=== PATIENT | male | born 1975 | race Hispanic/Latino ===

== ENCOUNTER 2017-06-19 14:29 | Inpatient (IN) | payer OTHER ==
[2017-06-19] VITALS (14 sets, daily range): BP systolic 120–155; BP diastolic 79–101
[~2017-06-19] VITALS: Ht 182.9 cm; Wt 133.8 kg
[~2017-06-19 14:29] MED LIST: CRESTOR PO; CRESTOR10 MG PO; GABAPENTIN300 MG PO; HCTZ PO; HYDROCODONE PO; INVOKANA PO; JANUMET PO; JANUVIA PO; LISINOPRIL PO; LISINOPRIL20 MG PO; METOPROLOL PO; METOPROLOL SUCC25 MG PO; NORCO 10-325 T1 EACH PO; SOMA PO
[2017-06-19] MEDS ORDERED: SODIUM CHLORIDE 0.9% 500ML 500 ML IV STA (14:40)
[2017-06-19] MEDS ORDERED: ASPIRIN 81 MG CHEW TAB PO ONE (14:45)
[2017-06-19 15:06] LABS: BASOPHILS % 0.6 % (0.0-1.0); EOSINOPHILS # (AUTO) 0.2 (0.0-0.4); EOSINOPHILS % 2.3 % (0.0-6.0); HEMATOCRIT 50.8 % (38.2-49.6); HEMOGLOBIN 17.7 g/dL (14.0-18.0); LYMPHOCYTES % 41.9 % (18.0-39.1); MEAN CORPUSCULAR HEMOGLOBIN 27.7 pg (28-32); MEAN CORPUSCULAR HGB CONC 34.8 g/dL (31-35); MEAN CORPUSCULAR VOLUME 79.6 fL (81-99); MONOCYTES # (AUTO) 0.5 (0.2-0.8); MONOCYTES % 7.1 % (4.4-11.3); NEUTROPHILS # (AUTO) 3.4 (2.1-6.9); NEUTROPHILS % 47.7 % (38.7-80.0); PLATELET COUNT 267 x10e3/uL (140-360); RED BLOOD COUNT 6.38 x10e6/uL (4.3-5.7); RED CELL DISTRIBUTION WIDTH 12.4 % (11.7-14.4)
[2017-06-19 15:11] LABS: INR 0.86; PROTHROMBIN TIME 12.1 seconds (11.9-14.5)
[2017-06-19 15:12] LABS: PARTIAL THROMBOPLASTIN TIME 27.7 seconds (23.8-35.5)
[2017-06-19 15:21] LABS: ALANINE AMINOTRANSFERASE 54 IU/L (0-55); ALBUMIN 3.9 g/dL (3.5-5.0); ALBUMIN/GLOBULIN RATIO 1.1 (0.8-2.0); ALKALINE PHOSPHATASE 91 IU/L (40-150); ANION GAP 17.8 mmol/L (8-16); BLOOD UREA NITROGEN 11 mg/dL (7-26); BUN/CREATININE RATIO 13 (6-25); CALCIUM 9.6 mg/dL (8.4-10.2); CARBON DIOXIDE 24 mmol/L (22-29); CHLORIDE 99 mmol/L (98-107); CREATINE KINASE 310 IU/L (30-200); CREATININE, SERUM 0.82 mg/dL (0.72-1.25); EST GLOMERULAR FILTRATION RATE > 60 ML/MIN (60-); GLUCOSE 239 mg/dL (74-118); LIPASE 33 U/L (8-78); POTASSIUM 3.8 mmol/L (3.5-5.1); SODIUM 137 mmol/L (136-145)
[2017-06-19 15:28] LABS: TROPONIN I 0.009 ng/mL (0-0.300)
[2017-06-19] MEDS ORDERED: SODIUM CHLORIDE FLUSH 10 ML SYR INJ PRN (16:00)
[2017-06-19] MEDS ORDERED: NITROGLYCERIN 0.4 MG SUBL SL PRN (16:00)
--- NOTE | 2017-06-19 16:11 | Diagnostic Imaging Report ---
PROCEDURE: A single AP view of the chest. COMPARISON: Patients [facility], DX, CHEST 2 VIEWS, 10/15/2013, 15:49. INDICATIONS: CODE STEMI, CHEST PAIN FINDINGS: Lines/tubes: None. Lungs: The lungs are well inflated and clear. There is no evidence of pneumonia or pulmonary edema. Pleura: There is no pleural effusion or pneumothorax. 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 Heart and mediastinum: The heart and the mediastinum are unremarkable. Bones: No acute bony abnormality. Partially visualized anterior fusion hardware in the lower cervical spine. IMPRESSION: 1. No acute cardiopulmonary abnormalities. Jag Cruz M.D. Dictated by: Jag Cruz M.D. on 06/19/2017 at 16:20 Electronically approved by: Jag Cruz M.D. on 06/19/2017 at 16:20
[2017-06-19] MEDS ORDERED: SODIUM CHLORIDE 0.9% 500ML 500 ML IV ONE (16:15)
[2017-06-19] MEDS ORDERED: IOPAMIDOL 370 MG/ML 200 ML INFUS..BTL INJ ONE ×3 (16:16→16:55)
[2017-06-19] MEDS ORDERED: LIDOCAINE HCL 2% LOCAL 20 ML VIAL ONE (16:16)
[2017-06-19] MEDS ORDERED: HEPARIN SOD/SOD CHLORIDE 2,000 ML ONE (16:16)
[2017-06-19] MEDS ORDERED: FENTANYL CITRATE/PF 100MCG/2 ML INJ ONE (16:27)
[2017-06-19] MEDS ORDERED: MIDAZOLAM HCL 2 MG/2 ML VIAL ONE (16:27)
[2017-06-19] MEDS ORDERED: HEPARIN SOD (PORCINE) 1000 UNIT/ML 30ML ONE (16:27)
[2017-06-19] MEDS ORDERED: NITROGLYCERIN/D5W 200 MCG/ML 250 ML ONE (16:28)
[2017-06-19] MEDS ORDERED: SODIUM CHLORIDE 0.9% 50ML 50 ML ONE (16:53)
[2017-06-19] MEDS ORDERED: BIVALIRUDIN 250 MG/VIAL IV ONE (16:53)
[2017-06-19] MEDS ORDERED: EPTIFIBATIDE 10 ML ONE (17:04)
[2017-06-19] MEDS ORDERED: EPTIFIBATIDE 100 ML ONE (17:04)
--- NOTE | 2017-06-19 17:13 | Consultation ---
DATE OF CONSULTATION: June 19, 2017 CARDIAC CONSULTATION REASON FOR CONSULTATION: Unstable coronary syndrome, possible ST-elevation myocardial infarction. HISTORY: I received a call from the emergency room for a 41-year-old gentleman who has been diabetic since age 17, hypertensive and hypercholesterolemic. The patient does have a very strong family history of coronary artery disease. In fact, he lost his brother a week ago for diabetes mellitus complications. He was on dialysis and possible myocardial infarction. Patient woke up this morning. He is not feeling well. He went to work. He had prolonged retrosternal chest pain radiating to his back, lasting for an hour with dizziness and near syncope. He subsequently had several episodes of repeated chest pain but not as severe. He went to see Dr. Infante. He advised him to come to the emergency room. He had EKG in Dr. Infante's office which showed QS with ST elevations in the anterior leads and left ventricular hypertrophy. In the emergency room, the patient was pain-free, but then he had a few episodes of this chest pain. Because of unstable nature of his symptoms and his suspicious EKG of possible recent myocardial infarction and QS in V1 to V2 versus severe LVH and the high risk factors, we elected to proceed with urgent cardiac catheterization and with activated cardiac laborer stores team. I visited with the patient who describes his chest pain. He is still having it back and forth. It is severe retrosternal, radiating to the back, associated with diaphoresis. Patient mainly works in the office. He does not do much of physical activity. He was able to carry out his activities before that day. Patient also known to have hypercholesterolemia and hypertension. He takes his medications as prescribed. He is on metformin, glipizide and Invokana in addition to lisinopril and Crestor. REVIEW OF SYSTEMS CARDIAC: As per above. PULMONARY: No cough. No hemoptysis. GI: No hematemesis. No melena. : Increased frequency of urination. NEUROMUSCULAR: Cervical spine pain and chronic pain on medication. GENERAL: No fever. No chills. SOCIAL HISTORY: He is . Unfortunately, he is a smoker. He is a social alcohol drinker. He works in an office. HOME MEDICATIONS: Metformin, glipizide, Invokana, gabapentin, lisinopril 20 mg a day, Crestor 20 mg a day. ALLERGIES: MINOCYCLINE. PAST MEDICAL HISTORY 1. Diabetes mellitus since age 17. 2. Hypercholesteremia. 3. Hypertension. 4. Cervical spine surgery. 5. Chronic pain syndrome. 6. Obesity. 7. Smoker. FAMILY HISTORY: Strongly positive for diabetes mellitus and coronary artery disease, losing his brother at age 35 to complications of diabetes and end-stage renal disease. He was on hemodialysis. PHYSICAL EXAMINATION GENERAL: Obese gentleman in pain. VITALS: Blood pressure is 160/90. Heart rate of 80. Respiratory rate of 18. Afebrile. HEENT: Pupils are equal and reactive. NECK: No elevation of jugular venous pulsation. No bruit. CHEST: Clear to auscultation and percussion. HEART: PMI at 5th left intercostal space, normal 1st and 2nd heart sounds. ABDOMEN: Soft with good bowel sounds. No organomegaly. No abdominal bruits. EXTREMITIES: No cyanosis. No clubbing. No edema. No signs of deep venous thrombosis. NEUROLOGIC: No motor or sensory deficits. LABORATORY DATA: As per chart. EKG showing left ventricular hypertrophy. QS with ST elevation in anterior leads. Lateral T wave inversion. IMPRESSION AND PLAN 1. Diabetes mellitus since age 17. 2. Hypertension. 3. Hypercholesterolemia. 4. Smoker. 5. Strong family history of coronary artery disease. 6. Typical unstable coronary syndrome pending myocardial infarction or possible anterior wall myocardial infarction with QS in anterior leads. PLAN: Discussed the case. In fact, I saw patient the patient in the emergency room because of the patient's typical symptoms. He will be taken to the laborer stores. microbiology laboratory manager is activated. The patient will be having cardiac catheterization urgently and emergently with possible intervention. The procedure, risks, benefits and alternatives are discussed and explained while the patient is draped. His questions are answered. Depending on the finding of the laborer stores, further steps to be taken. Job#: [id number]
[2017-06-19] MEDS: SODIUM CHLORIDE 0.9% 1000ML 1,000 ML IV SCH (17:52)
[2017-06-19] MEDS ORDERED: ACETAMINOPHEN 325 MG TAB PO PRN (18:00)
[2017-06-19] MEDS ORDERED: DEXTROSE 50% SYRINGE 50 ML IV PRN (18:00)
[2017-06-19] MEDS ORDERED: ZOLPIDEM TARTRATE 5 MG TAB PO PRN (18:00)
[2017-06-19] MEDS ORDERED: ONDANSETRON HCL INJ 2 MG/ML VIAL IV PRN (18:00)
[2017-06-19] MEDS: ATORVASTATIN 40 MG TAB PO SCH (21:05)
[2017-06-19] MEDS: GABAPENTIN 300 MG CAP PO SCH (21:42)
[2017-06-19] MEDS: INSULIN REGULAR, HUMAN 100 UNIT/1 ML 3ML VIAL SQ SCH (21:42)
[2017-06-19] MEDS: HYDROCODONE/APAP 5MG-325MG TAB PO PRN (21:42)
[2017-06-19] MEDS ORDERED: GABAPENTIN 300 MG CAP ONE (21:46)
--- NOTE | 2017-06-19 23:02 | Operative Report ---
DATE OF PROCEDURE: June 19, 2017 PROCEDURES PERFORMED 1. Left heart cardiac catheterization with coronary angiography. 2. Left ventriculography. 3. Percutaneous coronary intervention with drug-eluting stent placement to the mid to distal left anterior descending. 4. Angio-Seal closure of the right common femoral arteriotomy. INDICATIONS FOR PROCEDURE: A 41-year-old gentleman with a history of hypertension, type 2 with complications, who came to his primary care physician's office today with chest pain syndrome that has been escalating and concerning for unstable coronary syndrome/and some unstable angina. The patient had EKG changes concerning for ACS. In light of typical symptoms, was taken emergently to the cardiac catheterization laboratory. After risks, benefits, pros, and cons of the procedure were explained, the patient agreed to proceed. The patient was brought to the cardiac catheterization laboratory where the right groin was prepped and draped in the usual sterile fashion. One percent lidocaine solution was used to numb the right groin. Access to the right femoral artery was obtained. The 4-Irish femoral sheath was placed. Selective coronary angiography: The [place] left and right coronary arteries were followed with JL5 and 3DRC diagnostic catheters respectively. An angled pigtail catheter was placed in the ventricle for ventriculography and hemodynamic assessment of left ventricular filling pressures. After noting the critical mid to distal LAD lesion, which was the culprit at 95+ percent stenosis and a very long lesion, we decided to proceed with intervention. The 4-Irish femoral sheath was upsized to a 6-Irish femoral sheath. We took an XB 4 guiding catheter and selected the left main coronary ostia. IV Angiomax bolus was given for systemic anticoagulation, as well as Integrilin boluses. Utilizing a 180 cm Prowater flex guidewire, this successfully crossed the lesion. We then took an Emerge 2.5 x 15 balloon and deployed that up to 10 atmospheres of pressure to predilate the lesion. We then took a Synergy 2.5 x 38 mm drug-eluting stent and deployed that up to 17 atmospheres of pressure landing just distal to an ectatic segment in the mid LAD. Final angiography revealed zero percent residual stenosis, ULISES-III flow and no complications. At the conclusion of the case, femoral angiogram was performed revealing femoral artery stick and a 6-Irish Angio-Seal closure device was successfully deployed achieving hemostasis. COMPLICATIONS: None. ESTIMATED BLOOD LOSS: Minimal. FINDINGS 1. Left main is angiographically normal and gives rise to an LAD and circumflex branch. 2. The LAD has diffuse areas of ectasia throughout with 40% proximal mid-stenosis just proximal to a large diagonal branch takeoff. The mid-LAD has ectatic area followed by a long mid to distal 95% stenosis. The LAD wraps around the apex. 3. The left circumflex gives rise to a very small anterolateral marginal branch followed by a moderate to large marginal branch, which has 50% to 60% stenosis just after the circumflex takeoff. The circumflex terminates into a small posterolateral marginal branch. 4. The RCA is dominant and diffusely ectatic with 30% stenosis along the proximal aspect of this vessel. This vessel gives rise to a right PDA and a right PRV branch. There is a 50% stenosis just after the takeoff of the right PDA. 5. Left ventricular ejection fraction is 65% with end-diastolic pressure of 24 mmHg. There is no significant LV to aortic pullback gradient. There is no ectasia of the ascending aorta. It filled after the injection of contrast. INTERVENTION SUMMARY: Underwent successful treatment of a long 95% mid to distal LAD stenosis with implantation of a Synergy 2.5 x 38 mm drug-eluting stent resulting on zero percent residual stenosis, ULISES-III flow, and no complications. PLAN/RECOMMENDATIONS 1. Aspirin and Plavix therapy. 2. 6 Hour bed rest after PCI. 3. Risk factor modification/medical therapy for CAD. Job#: [id number] RI KRISTAL
[2017-06-19 23:43] LABS: CREATINE KINASE MB 2.5 ng/mL (0.00-5.00); TROPONIN I 0.01 ng/mL (0-0.300)
[2017-06-20] VITALS (20 sets, daily range): BP systolic 103–146; BP diastolic 73–88
[2017-06-20 05:54] LABS: BASOPHILS % 0.5 % (0.0-1.0); EOSINOPHILS # (AUTO) 0.2 (0.0-0.4); EOSINOPHILS % 2.1 % (0.0-6.0); HEMATOCRIT 45.4 % (38.2-49.6); HEMOGLOBIN 15.5 g/dL (14.0-18.0); LYMPHOCYTES % 35.1 % (18.0-39.1); MEAN CORPUSCULAR HGB CONC 34.1 g/dL (31-35); MEAN CORPUSCULAR VOLUME 81.9 fL (81-99); MONOCYTES # (AUTO) 0.7 (0.2-0.8); NEUTROPHILS # (AUTO) 4.5 (2.1-6.9); NEUTROPHILS % 53.9 % (38.7-80.0); PLATELET COUNT 230 x10e3/uL (140-360); RED BLOOD COUNT 5.54 x10e6/uL (4.3-5.7); RED CELL DISTRIBUTION WIDTH 12.5 % (11.7-14.4)
[2017-06-20] MEDS ORDERED: METFORMIN HCL500 MG PO (06:07)
[2017-06-20] MEDS ORDERED: GLIPIZIDE ER5 MG PO (06:08)
[2017-06-20] MEDS ORDERED: INFLUENZA VIRUS VAC SPLIT INJ 0.5 ML SYR IM ONE ×2 (06:30→11:46)
[2017-06-20] MEDS ORDERED: PNEUMOCOCCAL VACCINE POLYVALENT 23 MCG/0.5 ML VIAL IM ONE (06:30)
[2017-06-20 06:34] LABS: ALANINE AMINOTRANSFERASE 44 IU/L (0-55); ALBUMIN 3.1 g/dL (3.5-5.0); ALKALINE PHOSPHATASE 72 IU/L (40-150); ANION GAP 13.4 mmol/L (8-16); BLOOD UREA NITROGEN 12 mg/dL (7-26); BUN/CREATININE RATIO 14 (6-25); CARBON DIOXIDE 27 mmol/L (22-29); CHLORIDE 102 mmol/L (98-107); CHOL/HDL RATIO 9.3 (3.9-4.7); CHOLESTEROL 299 MD/DL (0-199); CREATINE KINASE 197 IU/L (30-200); CREATININE, SERUM 0.85 mg/dL (0.72-1.25); EST GLOMERULAR FILTRATION RATE > 60 ML/MIN (60-); GLUCOSE 255 mg/dL (74-118); HDL CHOLESTEROL 32 MG/DL (40-60); POTASSIUM 4.4 mmol/L (3.5-5.1); SODIUM 138 mmol/L (136-145); TRIGLYCERIDES 777 MG/DL (0-149)
[2017-06-20 06:44] LABS: BILIRUBIN,URINE NEGATIVE (NEGATIVE); CLARITY,URINE HAZY (CLEAR); COLOR,URINE YELLOW (YELLOW); KETONES,URINE NEGATIVE (NEGATIVE); LEUKOCYTE ESTERASE ,URINE 2+ (NEGATIVE); NITRITE,URINE NEGATIVE (NEGATIVE); URINE UROBILINOGEN 0.2 mg/dL (0.2 - 1)
[2017-06-20 06:48] LABS: AMPHETAMINES SCREEN,URINE NEGATIVE (NEGATIVE); BENZODIAZEPINES SCREEN,URINE NEGATIVE (NEGATIVE); PHENCYCLIDINE SCREEN,URINE NEGATIVE (NEGATIVE); PROTEIN,URINE DIPSTICK 2+ (NEGATIVE)
[2017-06-20 06:59] LABS: THYROID STIMULATING HORMONE 1.846 uIU/mL (0.350-4.940)
[2017-06-20 07:01] LABS: BACTERIA,URINE MODERATE /HPF; EPITHELIAL CELLS,URINE FEW /LPF; HYALINE CASTS 0-1 (0-1); MUCUS,URINE MODERATE (RARE); WBC,URINE (MAN) >50 /HPF (0-5)
[2017-06-20] MEDS: INSULIN REGULAR, HUMAN 100 UNIT/1 ML 3ML VIAL SQ SCH ×4 (07:30→20:20)
[2017-06-20] MEDS: SODIUM CHLORIDE 0.9% 1000ML 1,000 ML IV SCH (08:21)
[2017-06-20] MEDS: ASPIRIN 325 MG TAB EC PO SCH (08:22)
[2017-06-20] MEDS: METOPROLOL TARTRATE 25 MG TAB PO SCH ×2 (08:23→17:02)
[2017-06-20] MEDS: GABAPENTIN 300 MG CAP PO SCH ×2 (08:24→20:20)
[2017-06-20] MEDS: CLOPIDOGREL BISULFATE 75 MG TAB PO SCH (08:24)
[2017-06-20] MEDS: LISINOPRIL 10 MG TAB PO SCH (08:24)
[2017-06-20] MEDS ORDERED: ASPIRIN 325 MG TAB ONE (08:27)
[2017-06-20] MEDS: HYDROCODONE/APAP 5MG-325MG TAB PO PRN ×2 (08:36→14:57)
[2017-06-20] MEDS ORDERED: PNEUMOCOCCAL VACCINE POLYVALENT 23 MCG/0.5 ML VIAL ONE (11:46)
[2017-06-20] MEDS ORDERED: LOPERAMIDE HCL 2 MG CAP PO PRN (12:00)
[2017-06-20] MEDS: ATORVASTATIN 40 MG TAB PO SCH (20:19)
[2017-06-21] VITALS: BP 120/68
[2017-06-21 04:00] VITALS: BP 120/68
[2017-06-21] MEDS ORDERED: ASPIRIN 325 MG TAB ONE (08:10)
[2017-06-21] MEDS: METOPROLOL TARTRATE 25 MG TAB PO SCH (08:14)
[2017-06-21] MEDS: CLOPIDOGREL BISULFATE 75 MG TAB PO SCH (08:14)
[2017-06-21] MEDS: GABAPENTIN 300 MG CAP PO SCH (08:14)
[2017-06-21] MEDS: INSULIN REGULAR, HUMAN 100 UNIT/1 ML 3ML VIAL SQ SCH (08:14)
[2017-06-21] MEDS: ASPIRIN 325 MG TAB EC PO SCH (08:14)
[2017-06-21] MEDS: LISINOPRIL 10 MG TAB PO SCH (08:15)
[2017-06-21] MEDS: HYDROCODONE/APAP 5MG-325MG TAB PO PRN (08:15)
[2017-06-21 08:37] VITALS: BP 119/69
[2017-06-21 09:54] VITALS: BP 119/69
[2017-06-21] MEDS ORDERED: PLAVIX75 MG PO (11:52)
[2017-06-21] MEDS ORDERED: CRESTOR10 MG PO (11:52)
[2017-06-21] MEDS ORDERED: METOPROLOL TART25 MG PO (11:52)
== END 2017-06-21 12:02 | disposition home or self-care (01) | DRG 247 ==
LOC: ER 14:29 → CATH LAB 17:16 → ICU 06-20 02:45 → MED/SURG 06-20 14:10
PROC: 027034Z Dilation of Coronary Artery, One Artery with Drug-eluting Intraluminal Device, Percutaneous Approach (ICD-10-PCS; principal; 2017-06-19)
PROC: 3E033PZ Introduction of Platelet Inhibitor into Peripheral Vein, Percutaneous Approach (ICD-10-PCS; 2017-06-19)
PROC: 4A023N7 Measurement of Cardiac Sampling and Pressure, Left Heart, Percutaneous Approach (ICD-10-PCS; 2017-06-19)
PROC: B2111ZZ Fluoroscopy of Multiple Coronary Arteries using Low Osmolar Contrast (ICD-10-PCS; 2017-06-19)
PROC: B2151ZZ Fluoroscopy of Left Heart using Low Osmolar Contrast (ICD-10-PCS; 2017-06-19)
DX: I25.110 Atherosclerotic heart disease of native coronary artery with unstable angina pectoris (principal); Z68.41 Body mass index [BMI] 40.0-44.9, adult; I10 Essential (primary) hypertension; E10.9 Type 1 diabetes mellitus without complications; E78.5 Hyperlipidemia, unspecified; Z82.49 Family history of ischemic heart disease and other diseases of the circulatory system; G89.29 Other chronic pain; M47.812 Spondylosis without myelopathy or radiculopathy, cervical region; E66.9 Obesity, unspecified; F17.200 Nicotine dependence, unspecified, uncomplicated; Z23 Encounter for immunization; Z79.82 Long term (current) use of aspirin; Z79.02 Long term (current) use of antithrombotics/antiplatelets
CPT/HCPCS: 36140; 36415; 71045; 77002; 80053; 80061; 80307; 81001; 82550; 82553; 82948; 83690; 83880; 84443; 84484; 85025; 85610; 85730; 87086; 90732; 93005; 93452; 93458; 99284; C1766; C9600; J0583; J1327; J1644; J2001; J2250; J7030; J7040; Q9967

== ENCOUNTER 2017-06-27 14:23 | Observation (INO) | payer OTHER ==
[~2017-06-27] VITALS: Ht 182.9 cm; Wt 127.9 kg
[~2017-06-27 14:23] MED LIST changes: +GLIPIZIDE ER5 MG PO; +METFORMIN HCL500 MG PO; +METOPROLOL TART25 MG PO; +PLAVIX75 MG PO
--- OUTSIDE RECORDS SUMMARY | 2017-06-27 14:27 | XMS REPORT | Continuity of Care Document ---
Author Author [facility] Organization [facility] Address [address] [place] [address] Phone Unavailable Care Team Providers Care Animal Behaviourist Name Role Phone WALT LOPEZ DO PCP Insurance Providers Guarantor Valente Hurst Address [address] [id number] Email [email or web address] Payer [employer] Policy Number [id number] Subscriber's Name Valente Hurst Relationship 18 Self / Same As Patient Group Number [id number] Group Name [id number] Effective Date 14 Advance Directives Directive Response Recorded Date/Time Does the patient have an advance directive? No 06/19/17 7:00pm If yes, is advance directive on file with [facility]? No 06/19/17 7:00pm If not on file with [facility] will patient provide a copy? No 06/19/17 7:00pm Do you have a Directive to Physician? No 06/19/17 3:12pm Do you have a Medical Power of Fuel Cell Battery Technician? No 06/19/17 3:12pm Do you have an out of hospital Do Not Resuscitate Order? No 06/19/17 3:12pm Do you have any special needs we should be aware of? No 06/19/17 3:12pm Do you have a support person here with you today? Yes 06/19/17 3:12pm Did patient receive Notice of Privacy Practices? Yes 06/19/17 3:12pm Did patient receive patient rights and responsibilities? Yes 06/19/17 3:12pm Problems Medical Problem Onset Date Status Chest pain Unknown Medications Current Home Medications Medication Dose Units Route Directions Days Qty Instructions Start Date Clopidogrel Bisulfate (Plavix) 75 Mg Tablet 75 Mg Oral Daily 30 Tab Gabapentin 300 Mg Capsule 300 Mg Oral Twice A Day 60 Cap Glipizide (Glipizide Er) 5 Mg Tab.er.24 1 Tab Oral Daily Hydrocodone Bit/Acetaminophen ([place] 10-325 Tablet) 1 Each Tablet 1 Tab Oral Twice A Day as needed for Pain Invokana 300 Mg Oral Twice A Day Lisinopril (Prinavil / Zestril) 20 Mg Tablet 20 Mg Oral Daily Metformin Hcl 500 Mg Tablet 500 Mg Oral Twice A Day 60 Tab Metoprolol Tartrate 25 Mg Tablet 25 Mg Oral Twice A Day Rosuvastatin Calcium (Crestor) 10 Mg Tab 40 Mg Oral Daily THERAPEUTICALLY SUBSTITUTED WITH SIMVASTATIN 40MG Past Home Medications Medication Directions Ordered Status Metoprolol Succinate 25 Mg Tab.er.24h, 25 Mg Oral Daily Discontinued Rosuvastatin Calcium (Crestor) 10 Mg Tab, 20 Mg Oral Daily Discontinued Social History Social History Problem Response Recorded Date/Time Onset Date Status Hx Psychiatric Problems No 06/19/2017 7:00pm Not Applicable Not Applicable Hx Eating Disorder No 06/19/2017 7:00pm Not Applicable Not Applicable Hx Substance Use Disorder No 06/19/2017 7:00pm Not Applicable Not Applicable Hx Depression No 06/19/2017 7:00pm Not Applicable Not Applicable Hx Alcohol Use No 06/19/2017 7:00pm Not Applicable Not Applicable Hx Substance Use Treatment No 06/19/2017 7:00pm Not Applicable Not Applicable Hx Physical Abuse No 06/19/2017 7:00pm Not Applicable Not Applicable Smoking Status Start Date Stop Date Current every day smoker Hospital Discharge Instructions No hospital discharge instruction information available. Plan of Care Discharge Date 06/21/17 12:02pm Disposition HOME, SELF-CARE Instructions/Education Provided Anticoagulation Therapy Hypercholesteremia Diabetes and Diet Cardiac Disease Risk Factors Heart Healthy Diet Prescriptions See Medication Section Referrals GARRY HICKS MD (Cardiology) Order Date: 1-2 Weeks Entered Date: 06/21/2017 11:30am Address: [address] [place] [id number] Additional Instructions/Education F/U WITH PCP IN 2 WEEKS CONTINUE DIABETIC REGIMEN AT HOME CALL AND SCHEDULE A F/U APPT WITH DR. HICKS NEXT WEEK OKAY TO SHOWER NO HEAVY LIFTING UNTIL F/U WITH DR. HICKS NO STRENUOUS ACTIVITY Functional Status Query Response Date Recorded Assistive Devices None June 19, 2017 7:00pm Ambulation Ability Independent June 19, 2017 7:00pm Toileting Ability Independent June 19, 2017 7:00pm Allergies, Adverse Reactions, Alerts Allergen Type Severity Reaction Status Last Updated Minocycline Allergy Severe ANAPHYLAXIS Active 06/19/17 Immunizations No immunization information available. Vital Signs Acute Vital Signs Vital Response Date/Time Temperature (Fahrenheit) 97.3 degrees F (97.6 - 99.5) 06/21/2017 9:54am Pulse Pulse Rate (adult) 74 bpm (60 - 90) 06/21/2017 9:54am Respiratory Rate 20 bpm (12 - 24) 06/21/2017 9:54am Blood Pressure 119/69 mm Hg 06/21/2017 9:54am Height 6 ft 0 in 06/19/2017 2:37pm Weight 295 lb 06/19/2017 7:00pm Body Mass Index 40.0 kg/m^2 06/19/2017 7:00pm Results Laboratory Results Test Name Result Units Flags Reference Collection Date/Time Result Date/ Time Comments White Blood Count 8.40 x10e3/uL 4.8-10.8 06/20/2017 5:45am 06/20/2017 5 :59am Red Blood Count 5.54 x10e6/uL 4.3-5.7 06/20/2017 5:45am 06/20/2017 5: 59am Hemoglobin 15.5 g/dL 14.0-18.0 06/20/2017 5:45am 06/20/2017 5:59am Hematocrit 45.4 % 38.2-49.6 06/20/2017 5:45am 06/20/2017 5:59am Mean Corpuscular Volume 81.9 fL 81-99 06/20/2017 5:45am 06/20/2017 5: 59am Mean Corpuscular Hemoglobin 28.0 pg 28-32 06/20/2017 5:45am 06/20/2017 5:59am Mean Corpuscular Hemoglobin Concent 34.1 g/dL 31-35 06/20/2017 5:45am 06/20/2017 5:59am Red Cell Distribution Width 12.5 % 11.7-14.4 06/20/2017 5:45am 2017 5:59am Platelet Count 230 x10e3/uL 140-360 06/20/2017 5:45am 06/20/2017 5: 59am Neutrophils (%) (Auto) 53.9 % 38.7-80.0 06/20/2017 5:45am 06/20/2017 5: 59am Lymphocytes (%) (Auto) 35.1 % 18.0-39.1 06/20/2017 5:45am 06/20/2017 5: 59am Monocytes (%) (Auto) 8.0 % 4.4-11.3 06/20/2017 5:45am 06/20/2017 5: 59am Eosinophils (%) (Auto) 2.1 % 0.0-6.0 06/20/2017 5:45am 06/20/2017 5: 59am Basophils (%) (Auto) 0.5 % 0.0-1.0 06/20/2017 5:45am 06/20/2017 5:59am IM GRANULOCYTES % 0.4 % 0.0-1.0 06/20/2017 5:45am 06/20/2017 5:59am Neutrophils # (Auto) 4.5 2.1-6.9 06/20/2017 5:45am 06/20/2017 5:59am Lymphocytes # (Auto) 3.0 1.0-3.2 06/20/2017 5:45am 06/20/2017 5:59am Monocytes # (Auto) 0.7 0.2-0.8 06/20/2017 5:45am 06/20/2017 5:59am Eosinophils # (Auto) 0.2 0.0-0.4 06/20/2017 5:45am 06/20/2017 5:59am Basophils # (Auto) 0.0 0.0-0.1 06/20/2017 5:45am 06/20/2017 5:59am Absolute Immature Granulocyte (auto 0.03 x10e3/uL 0-0.1 06/20/2017 5: 45am 06/20/2017 5:59am Prothrombin Time 12.1 seconds 11.9-14.5 06/19/2017 2:49pm 06/19/2017 3: 12pm Prothromb Time International Ratio 0.86 06/19/2017 2:49pm 2017 3:12pm Oral Anticoagulant Therapy INR Values: 1. Low Intensity Therapy 1.5 - 2.0 2. Moderate Intensity Therapy 2.0 - 3.0 3. High Intensity Therapy(1) 2.5 - 3.5 4. High Intensity Therapy(2) 3.0 - 4.0 5. Panic Value INR > 5.0 Activated Partial Thromboplast Time 27.7 seconds 23.8-35.5 06/19/2017 2: 49pm 06/19/2017 3:12pm Urine Color YELLOW YELLOW 06/20/2017 6:25am 06/20/2017 6:48am Urine Clarity HAZY CLEAR 06/20/2017 6:25am 06/20/2017 6:48am Urine Specific [place] 1.020 1.010-1.025 06/20/2017 6:25am 2017 6:48am Urine pH 6 5 - 7 06/20/2017 6:25am 06/20/2017 6:48am Urine Leukocyte Esterase 2+ H NEGATIVE 06/20/2017 6:25am 06/20/2017 6: 48am Urine Nitrite NEGATIVE NEGATIVE 06/20/2017 6:25am 06/20/2017 6:48am Urine Protein 2+ H NEGATIVE 06/20/2017 6:25am 06/20/2017 6:48am Urine Glucose (UA) 1+ H NEGATIVE 06/20/2017 6:25am 06/20/2017 6:48am Urine Ketones NEGATIVE NEGATIVE 06/20/2017 6:25am 06/20/2017 6:48am Urine Opiates Screen POSITIVE H NEGATIVE 06/20/2017 6:25am 06/20/2017 6:48am This test provides only a screen. Positive results should be repeated by a confirmatory test. Urine Barbiturates Screen NEGATIVE NEGATIVE 06/20/2017 6:25am 2017 6:48am Urine Phencyclidine Screen NEGATIVE NEGATIVE 06/20/2017 6:25am 2017 6:48am Urine Amphetamines Screen NEGATIVE NEGATIVE 06/20/2017 6:25am 2017 6:48am Urine Methamphetamines Screen NEGATIVE NEGATIVE 06/20/2017 6:25am 6:48am Urine Benzodiazepines Screen NEGATIVE NEGATIVE 06/20/2017 6:25am 6:48am Urine Cocaine Screen NEGATIVE NEGATIVE 06/20/2017 6:25am 06/20/2017 6 :48am Urine Cannabinoids Screen NEGATIVE NEGATIVE 06/20/2017 6:25am 2017 6:48am THESE RESULTS ARE FOR MEDICAL TREATMENT ONLY *THIS REPORT CONTAINS UNCONFIRMED SCREENING RESULTS* POSITIVE RESULTS WILL BE CONFIRMED BY REFERENCE LAB UPON REQUEST CUT-OFF DRUG CLASS CONCENTRATION ng/mL Amphetamines 1000 Methamphetamines 1000 Cocaine 300 Opiate 300 Phencyclidine 25 Cannabinoid 50 Barbiturates 300 Benzodiazepine 300 Methadone 300 Urine Methadone Screen NEGATIVE NEGATIVE 06/20/2017 6:25am 2017 6:48am THESE RESULTS ARE FOR MEDICAL TREATMENT ONLY *THIS REPORT CONTAINS UNCONFIRMED SCREENING RESULTS* POSITIVE RESULTS WILL BE CONFIRMED BY REFERENCE LAB UPON REQUEST CUT-OFF DRUG CLASS CONCENTRATION ng/mL Amphetamines 1000 Methamphetamines 1000 Cocaine Metabolite 300 Opiate 300 Phencyclidine 25 Cannabinoid 50 Barbiturates 300 Benzodiazepine 300 Methadone 300 Urine Urobilinogen 0.2 mg/dL 0.2 - 1 06/20/2017 6:25am 06/20/2017 6: 48am Urine Bilirubin NEGATIVE NEGATIVE 06/20/2017 6:25am 06/20/2017 6: 48am Urine Blood 1+ H NEGATIVE 06/20/2017 6:25am 06/20/2017 6:48am Urine WBC >50 /HPF H 0-5 06/20/2017 6:25am 06/20/2017 7:01am Urine RBC 11-20 /HPF H 0-5 06/20/2017 6:25am 06/20/2017 7:01am Urine Bacteria MODERATE /HPF H NONE 06/20/2017 6:25am 06/20/2017 7:01am Urine Epithelial Cells FEW /LPF NONE 06/20/2017 6:25am 06/20/2017 7: 01am Urine Hyaline Casts 0-1 0-1 06/20/2017 6:25am 06/20/2017 7:01am Urine Mucus MODERATE H RARE 06/20/2017 6:25am 06/20/2017 7:01am Sodium Level 138 mmol/L 136-145 06/20/2017 5:45am 06/20/2017 6:35am Potassium Level 4.4 mmol/L 3.5-5.1 06/20/2017 5:45am 06/20/2017 6:35am Chloride Level 102 mmol/L 98-107 06/20/2017 5:45am 06/20/2017 6:35am Carbon Dioxide Level 27 mmol/L 22-06/20/2017 5:45am 06/20/2017 6: 35am Anion Gap 13.4 mmol/L 8-16 06/20/2017 5:45am 06/20/2017 6:35am Blood Urea Nitrogen 12 mg/dL 7-06/20/2017 5:45am 06/20/2017 6:35am Creatinine 0.85 mg/dL 0.72-1.25 06/20/2017 5:45am 06/20/2017 6:35am BUN/Creatinine Ratio 14 606/20/2017 5:45am 06/20/2017 6:35am Estimat Glomerular Filtration Rate > 60 ML/MIN 6006/20/2017 5:45am 6:35am Ranges were taken from the National Kidney Disease Education Program and the National Kid[employer] Foundation literature. Reference ranges: 60 or greater: Normal 16-59 (for 3 consecutive months): Chronic kidney disease 15 or less: Kidney failure Glucose Level 255 mg/dL H 74-118 06/20/2017 5:45am 06/20/2017 6:35am Calcium Level 9.0 mg/dL 8.4-10.2 06/20/2017 5:45am 06/20/2017 6:35am Bedside Glucose 225 mg/dL H 70-120 06/21/2017 7:06am 06/21/2017 7:51am Meter ID: [id number] Total Bilirubin 0.7 mg/dL 0.2-1.2 06/20/2017 5:45am 06/20/2017 6:35am Aspartate Amino Transf (AST/SGOT) 25 IU/L 5-34 06/20/2017 5:45am 2017 6:35am Alanine Aminotransferase (ALT/SGPT) 44 IU/L 0-55 06/20/2017 5:45am 6:35am Total Protein 6.3 g/dL L 6.5-8.1 06/20/2017 5:45am 06/20/2017 6:35am Albumin 3.1 g/dL # L 3.5-5.0 06/20/2017 5:45am 06/20/2017 6:35am Globulin 3.2 g/dL 2.3-3.5 06/20/2017 5:45am 06/20/2017 6:35am Albumin/Globulin Ratio 1.0 0.8-2.0 06/20/2017 5:45am 06/20/2017 6: 35am Alkaline Phosphatase 72 IU/L 40-150 06/20/2017 5:45am 06/20/2017 6: 35am Triglycerides Level 777 MG/DL H 0-149 06/20/2017 5:45am 06/20/2017 6: 35am Cholesterol Level 299 MD/DL H 0-199 06/20/2017 5:45am 06/20/2017 6:35am Less than 200 mg/dL Low Risk 201 - 239 mg/dL Borderline Risk 240 mg/dl and greater High Risk HDL Cholesterol 32 MG/DL L 40-60 06/20/2017 5:45am 06/20/2017 6:35am Cholesterol/HDL Ratio 9.3 H 3.9-4.7 06/20/2017 5:45am 06/20/2017 6: 35am B-Type Natriuretic Peptide < 10.0 pg/mL 0-100 06/19/2017 2:49pm 2017 3:37pm Creatine Kinase 197 IU/L 30-200 06/20/2017 5:45am 06/20/2017 6:35am Creatine Kinase MB 2.30 ng/mL 0.00-5.00 06/20/2017 5:45am 06/20/2017 7: 01am Troponin I 0.010 ng/mL 0-0.300 06/20/2017 5:45am 06/20/2017 7:01am Lipase 33 U/L 8-78 06/19/2017 2:49pm 06/19/2017 3:21pm Thyroid Stimulating Hormone (TSH) 1.846 uIU/mL 0.350-4.940 06/20/2017 5: 45am 06/20/2017 7:01am Procedures Procedure Status Date Provider(s) CT of abdomen and pelvis without contrast Active 12/19/16 JONAH GRAJEDA MD Encounters Encounter Location Arrival/Admit Date Discharge/Depart Date Attending Provider Discharged Inpatient [facility] 06/20/17 2:45am 06/21/17 12:02pm ANDERS ELIZALDE MD Departed Emergency Room [facility] 12/19/16 10:09am 12/19 12:29pm JONAH GRAJEDA MD
--- OUTSIDE RECORDS SUMMARY | 2017-06-27 14:27 | XMS REPORT ---
Author Author [facility] Address Unknown Phone Unavailable Care Team Providers Care Hand Rigger Name Role Phone VICKY PADILLA Unavailable Unavailable Problems This patient has no known problems. Allergies, Adverse Reactions, Alerts This patient has no known allergies or adverse reactions. Medications This patient has no known medications. Results Test Description Test Time Test Comments Text Results Atomic Results Result Comments CHEST SINGLE (PORTABLE) [place] [address] Patient Name: YULY LEDBETTER MR #: [id number] : 1975 Age/Sex: 41/M Req #: [id number] Adm Physician: Ordered by: XIMENA WINSLOW INSPECTOR [employer] Report # : [id number] Location: ER Room/Bed: Procedure: [id number] DX/CHEST SINGLE (PORTABLE) Exam Date: 06/19/17 Exam Time: 1555 REPORT STATUS: Signed PROCEDURE: A single AP view of the chest. COMPARISON: [facility], , CHEST 2 VIEWS, 10/15, 15:49. INDICATIONS: CODE STEMI, CHEST PAIN FINDINGS : Lines/tubes: None. Lungs: The lungs are well inflated and clear. There is no evidence of pneumonia or pulmonary edema. Pleura: There is no pleural effusion or pneumothorax. 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 Heart and mediastinum: The heart and the mediastinum are unremarkable. Bones: No acute bony abnormality. Partially visualized anterior fusion hardware in the lower cervical spine. IMPRESSION: 1. No acute cardiopulmonary abnormalities. Kale Cruz M.D. Dictated by: Kale Cruz M.D. on 06/19/2017 at 16:20 Electronically approved by: Kale Cruz M.D. on 2017 at 16:20 Dictated By: KALE CRUZ MD 1620 Transcribed By: BEKAH on 1620 COPY TO: XIMENA WINSLOW NP
[2017-06-27] MEDS ORDERED: ASPIRIN 81 MG CHEW TAB PO STA (15:25)
[2017-06-27] MEDS ORDERED: NITROGLYCERIN 0.4 MG SUBL SL PRN (15:30)
[2017-06-27] MEDS ORDERED: ASPIRIN 81 MG CHEW TAB PO ONE ×2 (15:30→17:30)
[2017-06-27 15:32] LABS: BASOPHILS % 0.5 % (0.0-1.0); EOSINOPHILS # (AUTO) 0.1 (0.0-0.4); EOSINOPHILS % 1.7 % (0.0-6.0); HEMATOCRIT 47.8 % (38.2-49.6); HEMOGLOBIN 16.5 g/dL (14.0-18.0); LYMPHOCYTES # (AUTO) 2.7 (1.0-3.2); LYMPHOCYTES % 31.6 % (18.0-39.1); MEAN CORPUSCULAR HEMOGLOBIN 27.6 pg (28-32); MEAN CORPUSCULAR HGB CONC 34.5 g/dL (31-35); MEAN CORPUSCULAR VOLUME 79.9 fL (81-99); MONOCYTES # (AUTO) 0.7 (0.2-0.8); NEUTROPHILS # (AUTO) 4.9 (2.1-6.9); PLATELET COUNT 282 x10e3/uL (140-360); RED BLOOD COUNT 5.98 x10e6/uL (4.3-5.7); RED CELL DISTRIBUTION WIDTH 11.9 % (11.7-14.4)
[2017-06-27 15:36] LABS: BILIRUBIN,URINE NEGATIVE (NEGATIVE); COLOR,URINE YELLOW (YELLOW); KETONES,URINE NEGATIVE (NEGATIVE); LEUKOCYTE ESTERASE ,URINE NEGATIVE (NEGATIVE); NITRITE,URINE NEGATIVE (NEGATIVE); URINE UROBILINOGEN 0.2 mg/dL (0.2 - 1)
[2017-06-27 15:39] LABS: INR 0.87; PROTHROMBIN TIME 12.3 seconds (11.9-14.5)
[2017-06-27 15:40] LABS: CLARITY,URINE CLEAR (CLEAR); PARTIAL THROMBOPLASTIN TIME 29.5 seconds (23.8-35.5); PROTEIN,URINE DIPSTICK 2+ (NEGATIVE)
[2017-06-27 15:46] LABS: MUCUS,URINE MODERATE (RARE); RBC,URINE 0-5 /HPF (0-5); WBC,URINE (MAN) 0-5 /HPF (0-5)
[2017-06-27 15:49] LABS: ALANINE AMINOTRANSFERASE 67 IU/L (0-55); ALBUMIN 4.2 g/dL (3.5-5.0); ALBUMIN/GLOBULIN RATIO 1.2 (0.8-2.0); ALKALINE PHOSPHATASE 83 IU/L (40-150); ANION GAP 16.1 mmol/L (8-16); BLOOD UREA NITROGEN 15 mg/dL (7-26); BUN/CREATININE RATIO 15 (6-25); CALCIUM 9.6 mg/dL (8.4-10.2); CARBON DIOXIDE 24 mmol/L (22-29); CHLORIDE 102 mmol/L (98-107); CREATINE KINASE 569 IU/L (30-200); CREATININE, SERUM 0.97 mg/dL (0.72-1.25); EST GLOMERULAR FILTRATION RATE > 60 ML/MIN (60-); GLUCOSE 131 mg/dL (74-118); POTASSIUM 4.1 mmol/L (3.5-5.1); SODIUM 138 mmol/L (136-145)
--- NOTE | 2017-06-27 15:55 | Diagnostic Imaging Report ---
PROCEDURE: A single AP view of the chest. COMPARISON: 06/19/17 INDICATIONS: CHEST PAIN FINDINGS: Lines/tubes: None. Lungs: Limited by body habitus and low lung volumes. Central vascular congestion. There is no evidence of pneumonia. Pleura: There is no pleural effusion or pneumothorax. Heart and mediastinum: The heart and the mediastinum are unremarkable. Bones: No acute bony abnormality. Cervical fusion hardware is in place. IMPRESSION: Limited as above. Central vascular congestion. No focal consolidation. Dictated by: Thanh To M.D. on 06/27/2017 at 16:05 Electronically approved by: Thanh To M.D. on 06/27/2017 at 16:05
[2017-06-27] MEDS ORDERED: ASPIR 8181 MG PO (17:18)
[2017-06-27] MEDS ORDERED: EMPAGLIFLOZIN PO (17:18)
[2017-06-27] MEDS ORDERED: GABAPENTIN400 MG PO (17:18)
[2017-06-27] MEDS ORDERED: LISINOPRIL10 MG PO ×2 (17:18→22:33)
[2017-06-27] MEDS ORDERED: MORPHINE SULFATE 2 MG/ML SYR IV PRN (17:30)
[2017-06-27] MEDS ORDERED: SODIUM CHLORIDE FLUSH 10 ML SYR INJ PRN (17:30)
[2017-06-27] MEDS: FAMOTIDINE 20 MG TAB PO SCH (18:22)
[2017-06-27] MEDS: NITROGLYCERIN 2% OINT 1 GM PKT TOP SCH ×2 (18:22→23:51)
[2017-06-27] MEDS: METOPROLOL TARTRATE 25 MG TAB PO SCH (18:22)
[2017-06-27] MEDS ORDERED: PRASUGREL 10 MG TAB PO ONE (18:30)
--- NOTE | 2017-06-27 19:45 | Consultation ---
DATE OF CONSULTATION: June 27, 2017 CARDIAC CONSULTATION REASON FOR CONSULTATION: Evaluate cardiac status, chest pain. HISTORY: This is a 41-year-old gentleman who is known to be diabetic since age 17, hypertensive and hypercholesteremic with very strong family history of coronary artery disease. In fact, patient lost his brother who is 5 years younger than him to acute myocardial infarction who was diabetic. He was on dialysis. Patient was at this institution on the May with unstable coronary syndrome, had a cardiac catheterization with some subsequent stenting of large LAD, mid LAD lesion. He does have ectatic diffuse coronary artery disease. He was dismissed home on medication. His blood sugar was totally out of control. He was on metformin and glipizide. He was seen by his physician and is also added. He is maintained on Plavix, Crestor, beta ulis and lisinopril. Patient came to this institution because of severe dizzy spells, feeling his head swimming, lower abdominal pain and pressure in his urogenital area. He had also maybe chest pain. He was very frightened because of his recent experience so he came directly to the emergency room. He denied having any nausea or vomiting. Any hematuria or melena. His blood sugar was at 111. After coming to the emergency room, he seems to be doing better. He is currently pain free. Cardiac consultation is obtained. I visited with the patient who is in bed in no distress. He is feeling better now. He is reassured he is not having myocardial infarction. His EKG showing left bundle branch block and left ventricular hypertrophy with strain pattern. Since discharged patient denied having any angina except for that episode. REVIEW OF SYSTEMS: CARDIAC: As per above. PULMONARY: As per above. GI: As per above. : As per above. NEUROMUSCULAR: Cervical spine pain and chronic pain. Patient takes several pain medications because of that. GENERAL: No fever. No chills. SOCIAL HISTORY: He is . He is a smoker. He is a social alcohol drinker. He worked in the office. HOME MEDICATIONS: Includes Crestor 40 mg a day. Aspirin 81 mg a day. Plavix 75 mg a day. Lisinopril 10 mg a day. Metoprolol tartrate 25 mg twice a day. Metformin 1000 mg twice a day. Glipizide 5 mg twice a day. 25 mg a day. Gabapentin 400 mg a day in addition to other p.r.n. medications. ALLERGIES: MINOCYCLINE. PAST MEDICAL HISTORY: 1. Coronary artery disease, status post PCI in May 2017. 2. Diabetes mellitus. 3. Hypercholesterolemia. 4. Hypertension. 5. Cervical spine surgery. 6. Chronic pain syndrome. 7. Obesity. 8. Smoker. FAMILY HISTORY: Strongly positive for diabetes mellitus and coronary artery disease. PHYSICAL EXAMINATION GENERAL: An overweight gentleman in no acute distress. VITALS: Blood pressure 130/80. Heart rate of 80. Respiratory rate of 18. HEENT: Pupils are equal and reactive. NECK: No elevation of jugular venous pulsation. No bruit. CHEST: Clear to auscultation and percussion. HEART: PMI 5th left intercostal space. Normal 1st and 2nd heart sounds. ABDOMEN: Soft with good bowel sounds. No organomegaly. No abdominal bruits. EXTREMITIES: No cyanosis. No clubbing. No edema. No signs of deep venous thrombosis. NEUROLOGIC: No gross motor or sensory deficits. LABORATORY DATA: As per chart. IMPRESSION AND PLAN: 1. Admission with possible hypoglycemic episodes. 2. Coronary artery disease status post recent PCI and diffuse coronary artery disease. 3. Diabetes mellitus with severe end-organ damage. 4. Hypertension. 5. Hypercholesterolemia. Cardiac-cole my recommendation observation on telemetry. Serial cardiac enzymes. Watching the blood sugars. Will give patient Effient instead of Plavix for the fear of Plavix resistance if he is having any cardiac symptoms. Will check his stool for blood. Will do serial cardiac enzymes. Will observe him on telemetry. Further steps will be taken depending on his course over the next 24 hours. Patient admitted to observation. Job#: [id number]
[2017-06-27 20:35] VITALS: BP 112/63
[2017-06-27 20:45] VITALS: BP 112/63
[2017-06-27] MEDS ORDERED: SIMVASTATIN 20 MG TAB PO SCH (21:00)
[2017-06-27] MEDS ORDERED: ALPRAZOLAM 1 MG TAB PO ONE (21:00)
[2017-06-27 23:53] LABS: CREATINE KINASE MB 2.7 ng/mL (0.00-5.00)
[2017-06-27] MEDS: HYDROCODONE/APAP 10MG-325MG TAB PO PRN (23:54)
[2017-06-28] VITALS: BP 118/64
[2017-06-28 05:00] VITALS: BP 116/63
[2017-06-28] MEDS: FAMOTIDINE 20 MG TAB PO SCH (05:39)
[2017-06-28] MEDS: METOPROLOL TARTRATE 25 MG TAB PO SCH (05:39)
[2017-06-28] MEDS: NITROGLYCERIN 2% OINT 1 GM PKT TOP SCH (05:41)
[2017-06-28 06:01] LABS: BASOPHILS # (AUTO) 0.1 (0.0-0.1); BASOPHILS % 0.8 % (0.0-1.0); EOSINOPHILS # (AUTO) 0.2 (0.0-0.4); EOSINOPHILS % 2.4 % (0.0-6.0); HEMATOCRIT 43.8 % (38.2-49.6); HEMOGLOBIN 15.2 g/dL (14.0-18.0); LYMPHOCYTES # (AUTO) 3.3 (1.0-3.2); LYMPHOCYTES % 42.1 % (18.0-39.1); MEAN CORPUSCULAR HEMOGLOBIN 27.8 pg (28-32); MEAN CORPUSCULAR HGB CONC 34.7 g/dL (31-35); MEAN CORPUSCULAR VOLUME 80.1 fL (81-99); MONOCYTES # (AUTO) 0.7 (0.2-0.8); MONOCYTES % 9.4 % (4.4-11.3); NEUTROPHILS # (AUTO) 3.5 (2.1-6.9); PLATELET COUNT 287 x10e3/uL (140-360); RED BLOOD COUNT 5.47 x10e6/uL (4.3-5.7); RED CELL DISTRIBUTION WIDTH 12.1 % (11.7-14.4)
[2017-06-28 06:24] LABS: ALANINE AMINOTRANSFERASE 57 IU/L (0-55); ALBUMIN 3.8 g/dL (3.5-5.0); ALBUMIN/GLOBULIN RATIO 1.2 (0.8-2.0); ALKALINE PHOSPHATASE 72 IU/L (40-150); ANION GAP 14.2 mmol/L (8-16); BLOOD UREA NITROGEN 19 mg/dL (7-26); BUN/CREATININE RATIO 23 (6-25); CALCIUM 9.2 mg/dL (8.4-10.2); CARBON DIOXIDE 24 mmol/L (22-29); CHLORIDE 105 mmol/L (98-107); CHOL/HDL RATIO 5.4 (3.9-4.7); CHOLESTEROL 163 MD/DL (0-199); CREATINE KINASE 500 IU/L (30-200); CREATININE, SERUM 0.83 mg/dL (0.72-1.25); EST GLOMERULAR FILTRATION RATE > 60 ML/MIN (60-); GLUCOSE 108 mg/dL (74-118); HDL CHOLESTEROL 30 MG/DL (40-60); LDL CHOLESTEROL 74 MG/DL (60-130); POTASSIUM 4.2 mmol/L (3.5-5.1); SODIUM 139 mmol/L (136-145); TRIGLYCERIDES 296 MG/DL (0-149)
[2017-06-28 06:50] LABS: THYROID STIMULATING HORMONE 2.154 uIU/mL (0.350-4.940)
[2017-06-28 07:21] VITALS: BP 119/70
[2017-06-28] MEDS: HYDROCODONE/APAP 10MG-325MG TAB PO PRN (08:00)
[2017-06-28] MEDS ORDERED: ASPIRIN 81 MG ENTERIC COATED PO SCH (09:00)
[2017-06-28] MEDS ORDERED: CLOPIDOGREL BISULFATE 75 MG TAB PO SCH (09:00)
[2017-06-28] MEDS ORDERED: PRASUGREL 10 MG TAB PO NR (10:15)
[2017-06-28 11:10] VITALS: BP 127/78
[2017-06-28 11:21] LABS: LYMPHOCYTES % (MANUAL) 40 % (19-48); MONOCYTES % (MANUAL) 7 % (3.4-9.0); NEUTROPHILS % (MANUAL) 43 % (40-74); PLATELET ESTIMATE ADEQUATE
[2017-06-28 11:22] LABS: ANISOCYTOSIS SLIGHT; PLATELET MORPHOLOGY COMMENT NORMAL; RBC MORPHOLOGY COMMENT NORMAL
== END 2017-06-28 12:58 | disposition home or self-care (01) ==
LOC: ER 14:23 → ERHOLD 17:28 → IMCU 20:07
DX: R07.9 Chest pain, unspecified (principal); R07.89 Other chest pain; I25.10 Atherosclerotic heart disease of native coronary artery without angina pectoris; E11.9 Type 2 diabetes mellitus without complications; Z95.5 Presence of coronary angioplasty implant and graft; E11.649 Type 2 diabetes mellitus with hypoglycemia without coma; E66.9 Obesity, unspecified; Z68.38 Body mass index [BMI] 38.0-38.9, adult
CPT/HCPCS: 36415 ×2; 71045; 80053 ×2; 80061; 81001; 82270; 82550 ×2; 82553 ×2; 82948 ×2; 83880; 84443; 84484 ×2; 85025 ×2; 85610; 85730; 87086; 93005; 94660; 99284; G0378 ×2; J2270

== ENCOUNTER 2018-04-15 03:22 | Observation (INO) | payer OTHER ==
[~2018-04-15] VITALS: Ht 182.9 cm; Wt 132.0 kg
[~2018-04-15 03:22] MED LIST changes: +ASPIR 8181 MG PO; +EMPAGLIFLOZIN PO; +GABAPENTIN400 MG PO; +LISINOPRIL10 MG PO
[2018-04-15] MEDS ORDERED: ASPIRIN 81 MG CHEW TAB PO ONE (04:00)
[2018-04-15 04:20] LABS: BASOPHILS # (AUTO) 0.1 (0.0-0.1); BASOPHILS % 0.5 % (0.0-1.0); EOSINOPHILS # (AUTO) 0.2 (0.0-0.4); EOSINOPHILS % 2.4 % (0.0-6.0); HEMATOCRIT 48.2 % (38.2-49.6); HEMOGLOBIN 16.3 g/dL (14.0-18.0); LYMPHOCYTES # (AUTO) 3.4 (1.0-3.2); LYMPHOCYTES % 34.3 % (18.0-39.1); MEAN CORPUSCULAR HEMOGLOBIN 27.6 pg (28-32); MEAN CORPUSCULAR HGB CONC 33.8 g/dL (31-35); MEAN CORPUSCULAR VOLUME 81.7 fL (81-99); MONOCYTES # (AUTO) 0.7 (0.2-0.8); MONOCYTES % 6.7 % (4.4-11.3); NEUTROPHILS # (AUTO) 5.5 (2.1-6.9); NEUTROPHILS % 55.7 % (38.7-80.0); PLATELET COUNT 283 x10e3/uL (140-360); RED CELL DISTRIBUTION WIDTH 12.6 % (11.7-14.4)
[2018-04-15 04:23] LABS: CLARITY,URINE HAZY (CLEAR); COLOR,URINE YELLOW (YELLOW)
[2018-04-15 04:24] LABS: BILIRUBIN,URINE NEGATIVE (NEGATIVE); KETONES,URINE NEGATIVE (NEGATIVE); LEUKOCYTE ESTERASE ,URINE NEGATIVE (NEGATIVE); NITRITE,URINE NEGATIVE (NEGATIVE); PROTEIN,URINE DIPSTICK 2+ (NEGATIVE); URINE UROBILINOGEN 0.2 mg/dL (0.2 - 1)
[2018-04-15 04:27] LABS: INR 0.82; PROTHROMBIN TIME 12.1 seconds (11.9-14.5)
[2018-04-15 04:28] LABS: PARTIAL THROMBOPLASTIN TIME 30.2 seconds (23.8-35.5)
[2018-04-15 04:35] LABS: BACTERIA,URINE FEW /HPF; EPITHELIAL CELLS,URINE FEW /LPF
[2018-04-15 04:37] LABS: ALANINE AMINOTRANSFERASE 52 IU/L (0-55); ALBUMIN 3.8 g/dL (3.5-5.0); ALBUMIN/GLOBULIN RATIO 1.2 (0.8-2.0); ALKALINE PHOSPHATASE 83 IU/L (40-150); ANION GAP 16.7 mmol/L (8-16); BLOOD UREA NITROGEN 13 mg/dL (7-26); BUN/CREATININE RATIO 16 (6-25); CALCIUM 9.6 mg/dL (8.4-10.2); CARBON DIOXIDE 22 mmol/L (22-29); CHLORIDE 103 mmol/L (98-107); CREATINE KINASE 243 IU/L (30-200); CREATININE, SERUM 0.79 mg/dL (0.72-1.25); EST GLOMERULAR FILTRATION RATE > 60 ML/MIN (60-); GLUCOSE 169 mg/dL (74-118); MAGNESIUM 2.1 MG/DL (1.3-2.1); POTASSIUM 3.7 mmol/L (3.5-5.1); SODIUM 138 mmol/L (136-145)
--- NOTE | 2018-04-15 04:49 | Diagnostic Imaging Report ---
EXAMINATION: CHEST 2 VIEWS INDICATION: Back pain, shortness of breath ^CP/BACK PAIN ^[id number] ^0420 COMPARISON: 06/19/2017 FINDINGS: PA and lateral views TUBES and LINES: None. LUNGS: Lungs are well inflated. Lungs are clear. There is no evidence of pneumonia or pulmonary edema. PLEURA: No pleural effusion or pneumothorax. HEART AND MEDIASTINUM: The cardiomediastinal silhouette is unremarkable. BONES AND SOFT TISSUES: No acute osseous lesion. Cervical fusion hardware. Soft tissues are unremarkable. UPPER ABDOMEN: No free air under the diaphragm. IMPRESSION: No acute thoracic abnormality. Signed by: DR. Vignesh Davis MD on 04/15/2018 4:46 AM
[2018-04-15] MEDS ORDERED: NITROGLYCERIN 0.4 MG SUBL SL PRN (05:15)
[2018-04-15] MEDS ORDERED: CEFTRIAXONE SOD 1 GM VIAL IV SCH (05:15)
[2018-04-15] MEDS ORDERED: MORPHINE SULFATE 2 MG/ML SYR IV PRN (05:15)
[2018-04-15] MEDS ORDERED: NITROGLYCERIN 2% OINT 1 GM PKT TOP ONE (05:15)
[2018-04-15] MEDS ORDERED: ONDANSETRON HCL INJ 2 MG/ML VIAL IV PRN (05:15)
[2018-04-15] MEDS ORDERED: DEXTROSE 50% SYRINGE 50 ML IV PRN (05:15)
[2018-04-15] MEDS ORDERED: INSULIN LISPRO 100 UNIT/1 ML 3ML VIAL SQ SCH (07:30)
[2018-04-15] MEDS ORDERED: ASPIRIN 81 MG ENTERIC COATED PO SCH (09:00)
[2018-04-15] MEDS ORDERED: CLOPIDOGREL BISULFATE 75 MG TAB PO SCH (09:00)
[2018-04-15] MEDS ORDERED: FAMOTIDINE 20 MG/2 ML VIAL IV SCH (09:00)
== END 2018-04-15 09:58 | disposition left against medical advice (07) ==
LOC: ER 03:22 → ERHOLD 05:19
DX: R07.89 Other chest pain (principal); R06.02 Shortness of breath; I10 Essential (primary) hypertension; E11.9 Type 2 diabetes mellitus without complications; I25.10 Atherosclerotic heart disease of native coronary artery without angina pectoris; E78.5 Hyperlipidemia, unspecified; G47.33 Obstructive sleep apnea (adult) (pediatric); Z95.5 Presence of coronary angioplasty implant and graft; F17.210 Nicotine dependence, cigarettes, uncomplicated; Z83.3 Family history of diabetes mellitus; Z82.49 Family history of ischemic heart disease and other diseases of the circulatory system; M54.6 Pain in thoracic spine; Z79.84 Long term (current) use of oral hypoglycemic drugs
CPT/HCPCS: 36415; 71046; 80053; 81001; 82550; 82553; 82948; 83735; 83880; 84484; 85025; 85379; 85610; 85730; 87086; 93005; 99284; G0378; J0696

== ENCOUNTER 2020-02-20 00:32 | Emergency (ER) | payer OTHER ==
[~2020-02-20] VITALS: Ht 182.9 cm; Wt 132.4 kg
[~2020-02-20 00:32] MED LIST changes: +BELBUCA600 MCG PO; +CHLORZOXAZONE PO; +GLIPIZIDE ER10 MG PO; +HYDROCODON-ACE1 EAC9 PO; +JARDIANCE25 MG PO; +LISINOPRIL40 MG PO; +LOPRESSOR25 MG PO; +METFORMIN HCL1000 MG PO; +NAPROXEN500 M1 PO; +PRASUGREL HCL10 MG PO; +RANITIDINE HCL150 MG PO; +ROSUVASTATIN CA40 MG PO; +TRICOR48 MG PO
[2020-02-20] MEDS ORDERED: ASPIRIN 81 MG CHEW TAB PO ONE (00:45)
--- NOTE | 2020-02-20 00:58 | Emergency Department Note ---
History of Present Illnes History of Present Illness Chief Complaint: Chest Pain History of Present Illness This is a 44 year old male PRESENTS TO THE ER VIA EMS FROM HOME C/O MIDSTERNAL CP RADIATING TO CENTER OF BACK AND SOB ONSET THIS EVENING AROUND 2300; PT STATES PAIN IS NOW ONLY IN HIS BACK; PT WAS GIVEN 324MG ASA AND X1 NITRO SPRAY BY EMS CLAIMS ADMINISTRATOR; NAD NOTED AT THIS TIME; . Historian: Patient Arrival Mode: [facility] EMS Treatment CLAIMS ADMINISTRATOR: IV, EKG, Aspirin Additional Treatment CLAIMS ADMINISTRATOR: 18G IV LT AC; 324MG ASA; X1 NITRO SPRAY Onset (how long ago): hour(s) (2) Location: SUBSTERNAL CHEST Quality: PAIN Radiation: Reports back Severity: moderate Onset quality: sudden Duration (how long): hour(s) (2) Timing of current episode: constant Progression: partially resolved Chronicity: new Context: Denies recent illness, Denies recent surgery, Denies trauma/injury Relieving factors: other (NTG BY EMS) Exacerbating factors: none Associated symptoms: Reports shortness of breath Treatments prior to arrival: aspirin, other (NTG BY EMS) Past Medical/Family History Physician Review I have reviewed the patient's past medical and family history. Any updates have been documented here. Past Medical History Recent Fever: No Clinical Suspicion of Infectio: No New/Unexplained Change in Ment: No Past Medical History: Hypertension, Diabetes, [place], CAD, Hyperlipedemia, Chronic Back Pain Other Medical History: SLEEP APNEA Past Surgical History: PCI, Hernia Repair Other Surgery: HERNIA REPAIR C5-C7 FUSION CARDIAC STENT Social History Smoking Cessation: Current every day smoker Alcohol Use: Occasional Any Illegal Drug Use: No Family History Family history of heart diseas: Yes Other Last Tetanus: UTD Review of Systems Review of Systems Constitutional: Reports no symptoms EENTM: Reports no symptoms Cardiovascular: Reports as per HPI Respiratory: Reports as per HPI Gastrointestinal: Reports no symptoms Genitourinary: Reports no symptoms Musculoskeletal: Reports no symptoms Integumentary: Reports no symptoms Neurological: Reports no symptoms Psychological: Reports no symptoms Endocrine: Reports no symptoms Hematological/Lymphatic: Reports no symptoms Physical Exam Related Data Allergies: Coded Allergies: minocycline (Verified Allergy, Severe, ANAPHYLAXIS, 04/15/18) Triage Vital Signs Vital Signs Date Time Temp Pulse Resp B/P (MAP) Pulse Ox O2 Delivery O2 Flow Rate FiO2 10/2/20 00:47 98.2 65 20 131/92 97 Room Air Vital signs reviewed: Yes Physical Exam CONSTITUTIONAL Constitutional: Present well-developed, Present well-nourished; Absent distressed HENT HENT: Present normocephalic, Present atraumatic, Present oropharynx clear/moist, Present nose normal HENT L/R: Present left ext ear normal, Present right ext ear normal EYES Eyes: Reports PERRL, Reports conjunctivae normal NECK Neck: Present ROM normal PULMONARY Pulmonary: Present effort normal, Present breath sounds normal CARDIOVASCULAR Cardiovascular: Present regular rhythm, Present heart sounds normal, Present capillary refill normal, Present normal rate GASTROINTESTINAL Abdominal: Present soft, Present nontender, Present bowel sounds normal GENITOURINARY Genitourinary: Present exam deferred SKIN Skin: Present warm, Present dry MUSCULOSKELETAL Musculoskeletal: Present ROM normal NEUROLOGICAL Neurological: Present alert, Present oriented x 3, Present no gross motor or sensory deficits PSYCHOLOGICAL Psychological: Present mood/affect normal, Present judgement normal Results Laboratory Laboratory Laboratory Tests Test 02/20/20 00:45 White Blood Count 7.96 x10e3/uL (4.8-10.8) Red Blood Count 5.61 x10e6/uL (4.3-5.7) Hemoglobin 15.8 g/dL (14.0-18.0) Hematocrit 45.7 % (38.2-49.6) Mean Corpuscular Volume 81.5 fL (81-99) Mean Corpuscular Hemoglobin 28.2 pg (28-32) Mean Corpuscular Hemoglobin Concent 34.6 g/dL (31-35) Red Cell Distribution Width 12.2 % (11.7-14.4) Platelet Count 253 x10e3/uL (140-360) Neutrophils (%) (Auto) 58.7 % (38.7-80.0) Lymphocytes (%) (Auto) 30.2 % (18.0-39.1) Monocytes (%) (Auto) 7.4 % (4.4-11.3) Eosinophils (%) (Auto) 2.5 % (0.0-6.0) Basophils (%) (Auto) 0.8 % (0.0-1.0) Neutrophils # (Auto) 4.7 (2.1-6.9) Lymphocytes # (Auto) 2.4 (1.0-3.2) Monocytes # (Auto) 0.6 (0.2-0.8) Eosinophils # (Auto) 0.2 (0.0-0.4) Basophils # (Auto) 0.1 (0.0-0.1) Absolute Immature Granulocyte (auto 0.03 x10e3/uL (0-0.1) Prothrombin Time 12.7 seconds (11.9-14.5) Prothromb Time International Ratio 0.91 Activated Partial Thromboplast Time 30.3 seconds (23.8-35.5) Sodium Level 142 mmol/L (136-145) Potassium Level 4.1 mmol/L (3.5-5.1) Chloride Level 104 mmol/L (98-107) Carbon Dioxide Level 24 mmol/L (22-29) Anion Gap 18.1 mmol/L (8-16) Blood Urea Nitrogen 16 mg/dL (7-26) Creatinine 0.89 mg/dL (0.72-1.25) Estimat Glomerular Filtration Rate > 60 ML/MIN (60-) BUN/Creatinine Ratio 18 (6-25) Glucose Level 181 mg/dL (74-118) Calcium Level 9.4 mg/dL (8.4-10.2) Total Bilirubin 0.4 mg/dL (0.2-1.2) Aspartate Amino Transf (AST/SGOT) 16 IU/L (5-34) Alanine Aminotransferase (ALT/SGPT) 24 IU/L (0-55) Alkaline Phosphatase 86 IU/L (40-150) Creatine Kinase 320 IU/L (30-200) Creatine Kinase MB 3.10 ng/mL (0-5.0) Troponin I 0.009 ng/mL (0-0.300) B-Type Natriuretic Peptide 18.5 pg/mL (0-100) Total Protein 7.2 g/dL (6.5-8.1) Albumin 4.4 g/dL (3.5-5.0) Globulin 2.8 g/dL (2.3-3.5) Albumin/Globulin Ratio 1.6 (0.8-2.0) Lab results reviewed: Yes Imaging Imaging results reviewed: Yes Impressions EXAM: CTA of the Thoracic Aorta WITH and without Contrast INDICATION: Midline upper back pain COMPARISON: Same-day chest x-ray. TECHNIQUE: Multi-detector CT technology was employed. CTA of the chest was performed before and after the administration of IV contrast. For optimization of anatomic evaluation, multiplanar reconstruction, maximum intensity projections, and advanced 3-D off-line postprocessing were performed on a dedicated stand-alone workstation. IV CONTRAST: 100 mL Isovue 370 ORAL CONTRAST: None COMPLICATIONS: None RADIATION DOSE: Total DLP: 1120 mGy*cm Estimated effective dose: (DLP x 0.015 x size factor) mSv CTDIvol has been reviewed. It is below the limits set by the Radiation Protocol Committee (RPC). FINDINGS: Potential study limitations: None. LINES/ TUBES: None. LUNGS AND AIRWAYS: Low lung volumes. Lungs are clear. Airways are patent. PLEURA: The pleural spaces are clear.. AORTA: Normal course caliber and contour. Minimal atherosclerosis. Normal arch branch pattern. No dissection. HEART AND MEDIASTINUM: The thyroid gland is normal. No mediastinal, hilar or axillary lymphadenopathy. The main pulmonary artery is normal in size. There is no pericardial effusion. Triple vessel coronary artery calcific atherosclerosis. Minimal aortic valve calcifications. LIMITED ABDOMEN: Fatty infiltration of the pancreas. Hepatomegaly. BONES: Degenerative changes. Cervical fixation hardware. IMPRESSION: There is no acute aortic pathology. Advanced triple vessel coronary artery calcific atherosclerosis. Hepatomegaly. Signed by: Robson Torres DO on 02/20/2020 2:40 AM Dictated By: ROBSON TORRES DO 9 Transcribed By: ADY on 02/20/20239 COPY TO: SHAHZAD MULTANI MD~ Procedures 12 Lead ECG Interpretation ECG Interpretation : ECG: ECG 1 Communications Clerk: Interpreted by ED physician Date: Feb 20, 2020 Time: 00:39 Prior ECG tracings: reviewed (LBBB PRESENT ON PREVIOUS EKG'S) Rhythm: sinus rhythm Rate: normal BPM: 65 Conduction: left bundle branch block ST segments normal: No (NON SPECIFIC CHANGES) T waves normal: No (NON SPECIFIC CHANGES) Other findings: no other findings Clinical Impression: abnormal ECG Assessment & Plan Medical Decision Making MDM PT WITH CHEST PAIN RADIATING THROUGH TO MIDDLE OF BACK CBC, CMP, EKG, CARDIAC ENZYMES, CTA CHEST, PT/PTT ORDERED TO EVAL FOR MYOCARDIAL INFARCTION, AORTIC DISSECTION, PNEUMONIA, PNEUMOTHORAX, ELECTROLYTE ABNORMALITY this facility has no beds available for admission, pt will require transfer for further eval and continuation of care i spoke with dr cornelius an dr german, accept pt for transfer at [facility] Assessment & Plan Final Impression: (1) Chest pain (2) History of PTCA 1 Depart Disposition: TRANS TO OTHER [facility] F[facility] Last Vital Signs Date Time Temp Pulse Resp B/P (MAP) Pulse Ox O2 Delivery O2 Flow Rate FiO2 02/20/20 00:47 98.2 65 20 131/92 97 Room Air Home Meds Active Scripts Fenofibrate (TRICOR) 48 Mg Tab, 48 MG PO DAILY, #30 TAB Prov:AFSHAN LOGAN Timothy [employer] 06/07/19 Reported Medications Empagliflozin (Jardiance) 25 Mg Tablet, 25 MG PO DAILY 02/20/20 Prasugrel Hcl (EFFIENT) 10 Mg Tablet, 10 MG PO DAILY, #30 TAB 02/20/20 Clonidine Hcl (CLONIDINE HCL) 0.1 Mg Tablet, 1 TAB PO Q12H PRN for HIGH BLOOD PRESSURE, #60 TAB 02/20/20 Linaclotide (Linzess) 290 Mcg Capsule, 290 MCG PO DAILY 02/20/20 Metaxalone (SKELAXIN) 800 Mg Tablet, 800 MG PO DAILY for ITCHING, #60 TAB 02/20/20 Prasugrel HCl (Prasugrel HCl) 10 Mg Tablet, 10 MG PO DAILY 06/06/19 Ranitidine Hcl (RANITIDINE HCL) 150 Mg Tablet, 150 MG PO HS 06/06/19 Lisinopril (LISINOPRIL) 40 Mg Tablet, 40 MG PO DAILY 06/06/19 Naproxen (NAPROXEN) 500 Mg Tablet.dr, 500 MG PO DAILY 06/06/19 Chlorzoxazone (Chlorzoxazone) 250 Mg Tablet, 250 MG PO DAILY PRN for MUSCLE SPASMS 06/06/19 Buprenorphine HCl (Belbuca) 600 Mcg Film, 600 MCG PO DAILY PRN for Mild Pain (1- 3) or Fever>100.8 06/06/19 Hydrocodone Bit/Acetaminophen (HYDROCODON-ACETAMINOPHN 10-325) 1 Each Tablet, 1 EA PO Q6H PRN for NECK PAIN 06/06/19 Rosuvastatin Calcium (Rosuvastatin Calcium) 40 Mg Tablet, 40 MG PO HS 06/06/19 Metoprolol Tartrate (LOPRESSOR) 25 Mg Tab, 25 MG PO BID 06/06/19 Metformin Hcl (METFORMIN HCL) 1,000 Mg Tablet, 1000 MG PO DAILY 06/06/19 Glipizide (GLIPIZIDE ER) 10 Mg Tab.er.24, 10 MG PO DAILY 06/06/19 Empagliflozin (Jardiance) 25 Mg Tablet, 25 MG PO DAILY 06/06/19 Gabapentin (GABAPENTIN) 400 Mg Capsule, 400 MG PO TID, #30 CAP 06/27/17 Medications in the ED Aspirin 81 mg PRN ONCE PO ; Start 02/20/20 at 00:45; Stop 02/20/20 at 00:48; Status DC SHAHZAD MULTANI MD Feb 20, 2020 00:58
[2020-02-20 01:16] LABS: INR 0.91; PARTIAL THROMBOPLASTIN TIME 30.3 seconds (23.8-35.5); PROTHROMBIN TIME 12.7 seconds (11.9-14.5)
[2020-02-20 01:20] LABS: BASOPHILS # (AUTO) 0.1 (0.0-0.1); BASOPHILS % 0.8 % (0.0-1.0); EOSINOPHILS # (AUTO) 0.2 (0.0-0.4); EOSINOPHILS % 2.5 % (0.0-6.0); HEMATOCRIT 45.7 % (38.2-49.6); HEMOGLOBIN 15.8 g/dL (14.0-18.0); LYMPHOCYTES # (AUTO) 2.4 (1.0-3.2); LYMPHOCYTES % 30.2 % (18.0-39.1); MEAN CORPUSCULAR HEMOGLOBIN 28.2 pg (28-32); MEAN CORPUSCULAR HGB CONC 34.6 g/dL (31-35); MEAN CORPUSCULAR VOLUME 81.5 fL (81-99); MONOCYTES # (AUTO) 0.6 (0.2-0.8); MONOCYTES % 7.4 % (4.4-11.3); NEUTROPHILS # (AUTO) 4.7 (2.1-6.9); NEUTROPHILS % 58.7 % (38.7-80.0); PLATELET COUNT 253 x10e3/uL (140-360); RED BLOOD COUNT 5.61 x10e6/uL (4.3-5.7); RED CELL DISTRIBUTION WIDTH 12.2 % (11.7-14.4)
--- NOTE | 2020-02-20 01:28 | Diagnostic Imaging Report ---
EXAMINATION: CHEST SINGLE (PORTABLE) INDICATION: Chest pain COMPARISON: Chest x-ray 06/06/2019 FINDINGS: TUBES and LINES: None. LUNGS: Low lung volumes. Lungs are clear. No consolidations. PLEURA: No pleural effusion or pneumothorax. HEART AND MEDIASTINUM: The cardiomediastinal silhouette is unremarkable. BONES AND SOFT TISSUES: No acute osseous lesion. Soft tissues are unremarkable. Cervical spine fixation hardware. UPPER ABDOMEN: No free air under the diaphragm. IMPRESSION: Low lung volumes otherwise no acute thoracic radiographic abnormality. Signed by: Robson Torres DO on 02/20/2020 1:24 AM
[2020-02-20 01:37] LABS: ALANINE AMINOTRANSFERASE 24 IU/L (0-55); ALBUMIN 4.4 g/dL (3.5-5.0); ALBUMIN/GLOBULIN RATIO 1.6 (0.8-2.0); ALKALINE PHOSPHATASE 86 IU/L (40-150); ANION GAP 18.1 mmol/L (8-16); BLOOD UREA NITROGEN 16 mg/dL (7-26); BUN/CREATININE RATIO 18 (6-25); CALCIUM 9.4 mg/dL (8.4-10.2); CARBON DIOXIDE 24 mmol/L (22-29); CHLORIDE 104 mmol/L (98-107); CREATINE KINASE 320 IU/L (30-200); CREATININE, SERUM 0.89 mg/dL (0.72-1.25); EST GLOMERULAR FILTRATION RATE > 60 ML/MIN (60-); GLUCOSE 181 mg/dL (74-118); POTASSIUM 4.1 mmol/L (3.5-5.1); SODIUM 142 mmol/L (136-145)
[2020-02-20] MEDS ORDERED: IOPAMIDOL 370 MG/ML 200 ML INFUS..BTL INJ ONE (01:56)
[2020-02-20] MEDS ORDERED: SODIUM CHLORIDE 0.9% 100 ML ONE (01:56)
[2020-02-20] MEDS ORDERED: CLONIDINE HCL0.1 MG PO (02:40)
[2020-02-20] MEDS ORDERED: LINZESS290 MCG PO (02:40)
[2020-02-20] MEDS ORDERED: JARDIANCE25 MG PO (02:40)
[2020-02-20] MEDS ORDERED: SKELAXIN800 MG PO (02:40)
[2020-02-20] MEDS ORDERED: EFFIENT10 MG PO (02:40)
--- NOTE | 2020-02-20 02:43 | Diagnostic Imaging Report ---
EXAM: CTA of the Thoracic Aorta WITH and without Contrast INDICATION: Midline upper back pain COMPARISON: Same-day chest x-ray. TECHNIQUE: Multi-detector CT technology was employed. CTA of the chest was performed before and after the administration of IV contrast. For optimization of anatomic evaluation, multiplanar reconstruction, maximum intensity projections, and advanced 3-D off-line postprocessing were performed on a dedicated stand-alone workstation. IV CONTRAST: 100 mL Isovue 370 ORAL CONTRAST: None COMPLICATIONS: None RADIATION DOSE: Total DLP: 1120 mGy*cm Estimated effective dose: (DLP x 0.015 x size factor) mSv CTDIvol has been reviewed. It is below the limits set by the Radiation Protocol Committee (RPC). FINDINGS: Potential study limitations: None. LINES/ TUBES: None. LUNGS AND AIRWAYS: Low lung volumes. Lungs are clear. Airways are patent. PLEURA: The pleural spaces are clear.. AORTA: Normal course caliber and contour. Minimal atherosclerosis. Normal arch branch pattern. No dissection. HEART AND MEDIASTINUM: The thyroid gland is normal. No mediastinal, hilar or axillary lymphadenopathy. The main pulmonary artery is normal in size. There is no pericardial effusion. Triple vessel coronary artery calcific atherosclerosis. Minimal aortic valve calcifications. LIMITED ABDOMEN: Fatty infiltration of the pancreas. Hepatomegaly. BONES: Degenerative changes. Cervical fixation hardware. IMPRESSION: There is no acute aortic pathology. Advanced triple vessel coronary artery calcific atherosclerosis. Hepatomegaly. Signed by: Robson Torres DO on 02/20/2020 2:40 AM
--- NOTE | 2020-02-20 03:27 | NUR ---
REPORT CALLED TO [facility] RM [id number] AT THIS TIME.
== END 2020-02-20 04:20 | disposition other institution (70) ==
LOC: ER 00:45
DX: R07.9 Chest pain, unspecified (principal); R06.02 Shortness of breath; R94.31 Abnormal electrocardiogram [ECG] [EKG]; I10 Essential (primary) hypertension; E11.9 Type 2 diabetes mellitus without complications; E78.5 Hyperlipidemia, unspecified; I25.2 Old myocardial infarction; Z98.61 Coronary angioplasty status
CPT/HCPCS: 36415; 71045; 71275; 80053; 82550; 82553; 83880; 84484; 85025; 85610; 85730; 93005; 99284; J7050; Q9967